=== PATIENT | male | born 1985 | race Caucasian/White ===

== ENCOUNTER 2025-10-15 19:26 | Inpatient (IN) | payer BC ==
[~2025-10-15] VITALS: Ht 177.8 cm; Wt 77.1 kg
[2025-10-15 19:37] VITALS: O2SAT 99
[2025-10-15 20:41] LABS: BASOPHILS % 0.9 % (0.0-2.0); EOSINOPHILS % 2.2 % (0.0-5.0); HEMATOCRIT. 40.3 % (42.0-52.0); HEMOGLOBIN. 13.5 g/dL (14.0-18.0); LYMPHOCYTES % 28.2 % (20.0-50.0); MEAN PLATELET VOLUME 8.1 fl (7.4-10.4); MONOCYTES % 8.9 % (2.0-8.0); NEUTROPHILS % 59.8 % (40.0-76.0); PLATELET 187 x1000/uL (130-400); RED BLOOD CELL COUNT 4.46 mill/uL (4.7-6.1); RED CELL DISTRIBUTION WIDTH 12.5 % (11.6-14.6)
[2025-10-15 20:59] LABS: CREATININE 1.3 mg/dL (0.6-1.3)
[2025-10-15 21:00] LABS: UREA NITROGEN BLOOD 9 mg/dL (9-23)
[2025-10-15 21:01] LABS: ASPARTATE AMINOTRANSFERASE 22 IU/L (<34)
[2025-10-15 21:02] LABS: BILIRUBIN DIRECT 0.2 mg/dL (<=3.0); BILIRUBIN TOTAL 0.8 mg/dL (0.1-1.0); PROTEIN TOTAL 6.8 g/dL (6.0-8.3)
[2025-10-15] MEDS: SODIUM CHLORIDE 0.9% 1,000 ML IV ONE (21:06)
[2025-10-15] MEDS: KETOROLAC 15MG/ML VIAL IV ONE (21:06)
[2025-10-15 21:07] LABS: TROPONIN I HIGH SENSITIVITY < 4 ng/L (3.0-53)
[2025-10-15 22:03] LABS: TROPONIN I HIGH SENSITIVITY < 4 ng/L (3.0-53)
[2025-10-16] MEDS ORDERED: DOCUSATE SODIUM 100MG CAPSULE PO PRN (03:30)
[2025-10-16] MEDS ORDERED: ONDANSETRON HCL 4MG/2ML INJ IV PRN (03:30)
[2025-10-16] MEDS ORDERED: IPRATROPIUM/ALBUTEROL 0.5-3(2.5)MG/3ML NEB HHN PRN (03:30)
[2025-10-16] MEDS ORDERED: GUAIFENESIN 200MG/10ML SUGAR FREE UDC PO PRN (03:30)
[2025-10-16 06:00] VITALS: BP 111/63; PULSE 47; RESP 20; TEMP 36.2; O2SAT 99
[2025-10-16 07:17] VITALS: BP 111/63; PULSE 47; RESP 18; TEMP 36.2512
[2025-10-16 08:00] VITALS: BP 114/72; PULSE 50; RESP 15; TEMP 36.6; O2SAT 99
[2025-10-16] MEDS: FAMOTIDINE 20MG/2ML VIAL IV SCH (09:00)
[2025-10-16] MEDS: ACETAMINOPHEN 325MG TABLET PO PRN (10:22)
[2025-10-16 11:38] LABS: TRIGLYCERIDE 105.0 mg/dL (0-150)
[2025-10-16 11:39] LABS: LDL CHOLESTEROL 110.0 mg/dL (5-100)
[2025-10-16 12:00] VITALS: BP 112/77; PULSE 54; RESP 17; TEMP 36.3; O2SAT 99
[2025-10-16] MEDS ORDERED: ESCI5TAB MT (15:56)
[2025-10-16 15:58] LABS: *AMPHETAMINES SCREEN URINE NEGATIVE (NEGATIVE); *BARBITURATES SCREEN URINE NEGATIVE (NEGATIVE); *BENZODIAZEPINES SCREEN URINE NEGATIVE (NEGATIVE); *COCAINE SCREEN URINE NEGATIVE (NEGATIVE)
[2025-10-16 15:59] LABS: CANNABINOID URINE SCREEN NEGATIVE (NEGATIVE); ECSTASY MDMA SCREEN URINE NEGATIVE (NEGATIVE); METHADONE URINE SCREEN NEGATIVE (NEGATIVE); OPIATES URINE SCREEN NEGATIVE (NEGATIVE); PHENCYCLIDINE URINE SCREEN NEGATIVE (NEGATIVE)
[2025-10-16 16:00] VITALS: BP 130/80; PULSE 49; RESP 16; TEMP 36.2; O2SAT 98
[2025-10-16 16:17] LABS: INFLUENZA TYPE A Presumptive Negative (Pres. Neg.)
[2025-10-16 16:18] LABS: INFLUENZA TYPE B Presumptive Negative (Pres. Neg.)
[2025-10-16 16:19] LABS: RESPIRATORY SYNCYTIAL VIRUS Not Detected (Not Detectd)
[2025-10-16] MEDS ORDERED: NON FORMULARY MED XX SCH (17:15)
[2025-10-16] MEDS ORDERED: LORAZEPAM 0.5MG TABLET PO PRN (17:45)
[2025-10-16 20:00] VITALS: BP 125/76; PULSE 54; RESP 18; TEMP 37; O2SAT 99
[2025-10-17 00:05] VITALS: BP 111/77; PULSE 52; RESP 18; TEMP 36.2; O2SAT 99
[2025-10-17 04:49] VITALS: BP 123/60; PULSE 57; TEMP 36.6
[2025-10-17] MEDS: IBUPROFEN 600MG TABLET PO NR (05:07)
[2025-10-17 08:00] VITALS: BP 106/69; PULSE 64; RESP 18; TEMP 36.6; O2SAT 97
[2025-10-17 08:10] LABS: BASOPHILS % 0.9 % (0.0-2.0); EOSINOPHILS % 2.9 % (0.0-5.0); HEMATOCRIT. 40.0 % (42.0-52.0); HEMOGLOBIN. 13.7 g/dL (14.0-18.0); LYMPHOCYTES % 34.4 % (20.0-50.0); MEAN PLATELET VOLUME 8.6 fl (7.4-10.4); MONOCYTES % 8.9 % (2.0-8.0); NEUTROPHILS % 52.9 % (40.0-76.0); PLATELET 185 x1000/uL (130-400); RED BLOOD CELL COUNT 4.49 mill/uL (4.7-6.1); RED CELL DISTRIBUTION WIDTH 12.4 % (11.6-14.6)
[2025-10-17 08:29] LABS: CREATININE 1.1 mg/dL (0.6-1.3)
[2025-10-17 08:30] LABS: UREA NITROGEN BLOOD 10 mg/dL (9-23)
[2025-10-17 08:32] LABS: PHOSPHORUS 4.1 mg/dL (2.5-4.9)
[2025-10-17] MEDS ORDERED: CITALOPRAM HYDROBROMIDE 10MG TABLET PO SCH (09:00)
[2025-10-17] MEDS ORDERED: NON FORMULARY MED XX SCH (09:30)
[2025-10-17 12:00] VITALS: BP 121/69; PULSE 54; RESP 18; TEMP 36.5; O2SAT 98
[2025-10-17 16:00] VITALS: BP 106/70; PULSE 58; RESP 18; TEMP 36.8; O2SAT 98
[2025-10-17 19:18] VITALS: BP 115/58; PULSE 61; RESP 20; TEMP 97.9
== END 2025-10-17 19:30 | disposition home or self-care (01) | DRG 93 ==
LOC: ER 19:26 → EDBEDREQ 10-16 01:38 → ENRESERV 10-16 03:58 → 8WST 10-16 04:19
PROVIDERS: ADMIT Internal Medicine; ATTEND Internal Medicine
DX: R47.81 Slurred speech (principal); D64.9 Anemia, unspecified; F32.9 Major depressive disorder, single episode, unspecified; E78.5 Hyperlipidemia, unspecified; Z20.822 Contact with and (suspected) exposure to COVID-19; R00.1 Bradycardia, unspecified; M48.02 Spinal stenosis, cervical region; Z86.73 Personal history of transient ischemic attack (TIA), and cerebral infarction without residual deficits; Z79.899 Other long term (current) drug therapy
CPT/HCPCS: 36415; 70551; 71045; 72141; 80048; 80061; 80076; 80305; 83735; 84100; 84484; 85025; 87420; 87426; 87804; 93005; 96361; 96374; 99285; A4606; J1308; J1885; J7030